=== PATIENT | male | born 1960 | race Asian ===

== ENCOUNTER 2020-06-25 13:39 | Emergency (ER) | payer SELFPAY ==
[~2020-06-25] VITALS: Ht 170.2 cm; Wt 88.4 kg
--- NOTE | 2020-06-25 13:53 | NUR ---
AMBULATORY TO ED ROOM 29 W/ STEADY GAIT
--- NOTE | 2020-06-25 14:00 | NUR ---
PT A&OX4, RESP EVEN & UNLABORED, SPEECH CLEAR, SKIN WNL. DENIES CP CURRENTLY. C/O INTERMITTENT CP AT REST OVER PAST FEW MONTHS, BECOMING MORE REGULAR, ACCOMPANIED BY INDIGESTION; BECOMES ANXIOUS. TAKES ASA 81MG DAILY. NO OTHER MED TAKEN FOR SX. DENIES VOMITING, SOB, DYSPNEA. BROKEN FRONT TOOTH AND DENTAL DECAY LT UPPER JAW; STATES DENTIST UNWILLING TO PULL TOOTH DUE TO HTN.
[2020-06-25] MEDS ORDERED: ASPI-496 PO (14:04)
[2020-06-25] MEDS ORDERED: ASPIRIN 81 MG TABLET CHEW ONE (14:27)
[2020-06-25] MEDS ORDERED: ASPIRIN 81 MG TABLET CHEW PO ONE ×2 (14:30)
[2020-06-25 14:53] LABS: BASOPHILS # (AUTO) 0.04 x10^3/uL (0-0.1); BASOPHILS % (AUTO) 1 % (0-1); EOSINOPHILS # (AUTO) 0.04 x10^3/uL (0-0.4); EOSINOPHILS % (AUTO) 1 % (1-7); LYMPHOCYTES # (AUTO) 1.45 x10^3/uL (1-3.4); LYMPHOCYTES % (AUTO) 20 % (22-44); MD NO; MEAN CORPUSCULAR HGB CONC 33.5 g/dL (33.2-36.2); MEAN CORPUSCULAR VOLUME 92.8 fL (81-97); MEAN PLATELET VOLUME 11.3 fL (7.4-10.4); MONOCYTES # (AUTO) 0.47 x10^3/uL (0.2-0.8); MONOCYTES % (AUTO) 6 % (2-9); NEUTROPHILS # (AUTO) 5.34 x10^3/uL (1.8-6.8); NEUTROPHILS % (AUTO) 73 % (42-75); PLATELET COUNT 173 x10^3/uL (130-400); RED BLOOD COUNT 4.76 x10^6/uL (4.38-5.82); RED CELL DISTRIBUTION WIDTH 13.8 % (9.4-14.8)
[2020-06-25 14:54] LABS: ALBUMIN 3.8 g/dL (3.4-5.0); ANION GAP 7 mmol/L (5-15); CALCIUM 8.8 mg/dL (8.5-10.1); CHLORIDE 106 mmol/L (98-107); CREATININE 0.81 mg/dL (0.7-1.3)
[2020-06-25 14:58] LABS: TROPONIN I < 0.015 ng/mL (0.000-0.045)
[2020-06-25 16:32] VITALS: BP 172/99
--- NOTE | 2020-06-25 18:55 | NUR ---
NEW DC DOCUMENT IN CHART AREA. CALLED PT TO NOTIFY HIM OF CHANGE IN INSTRUCTIONS; REACHED GENERIC VM, LEFT BASIC MESSAGE REQUESTING RETURN CALL.
== END 2020-06-25 17:29 | disposition home or self-care (01) ==
LOC: ED 17:15
DX: R07.89 Other chest pain (principal)
CPT/HCPCS: 36415; 71045; 80048; 82040; 84484; 85025; 93005; 99285